=== PATIENT | female | born 1935 | race Caucasian/White ===

== ENCOUNTER 2016-06-13 18:28 | Inpatient (IN) | payer OTHER, MEDICARE ==
[~2016-06-13] VITALS: Ht 162.6 cm; Wt 161.3 kg
[~2016-06-13 18:28] MED LIST: ADVAI250I PO; ASCO500 PO; B COTAB3 PO; BACL20TA PO; CO Q100C9 PO; DIFL150T PO; DUONI NEB; FLUN25I; GNP5TAB6 PO; HYDRO10 PO; INSU100V3 SC; LEVO.1 PO; LORA10 PO; MAGN500T4 PO; OXYC10TA8 PO; POLY119S PO; ROPI.5 PO; SILV400T TOP; TAB-TAB PO; WARF7.5T4 PO; [UNRECOGNIZED DRUG - CODE] PO; [UNRECOGNIZED DRUG - OTHER] PO
--- NOTE | 2016-06-13 18:44 | PD ---
HPI Chief Complaint: pain Time Seen by Provider: 18:39 Travel History International Travel<30 days: No Contact w/Intl Traveler<30days: No History of Present Illness HPI Patient was in complaining of worsening overall body ain. Patient states she slipped off of her bed falling between her bed and her wheelchair for approximately 2-3 hours. Patient having pain in her right lower extremity since primarily over the right knee is achy like in nature. Patient denies hitting her head or loss of consciousness. Patient states she continues to have pain all over. Denies anything making it better. Pain is worse certain movement. Denies any known fevers, shortness of breath, chest pain, nausea, vomiting, numbness or tingling anywhere that is new. Patient states she is usually able to get up and pivot from her chair to her bed using her left leg since her fall yesterday she has not been able to do this secondary to having pain all over. Patient states she contacted her primary care doctor about wanting to get into an assisted-living facility and was told she would have to come back to the hospital to be admitted in order to be placed into a nursing facility. Patient states she is unable to take care of herself and this is a reason she wants to go to an [facility]. Patient denies any new trauma since her fall yesterday. PFSH Past Medical History Hx Anticoagulant Therapy: Yes Arthritis: Yes Asthma: Yes Autoimmune Disease: No Heart Rhythm Problems: No Cancer: No Cardiovascular Problems: Yes ([place]) High Cholesterol: Yes Chemotherapy: No Chest Pain: No Congestive Heart Failure: No COPD: No Cerebrovascular Accident: Yes Diabetes: Yes Deep Vein Thrombosis: Yes Endocrine: Yes GERD: No Genitourinary: No Hiatal Hernia: No Hypertension: Yes Immune Disorder: No Implanted Vascular Access Dvce: Yes Kidney Stones: No Musculoskeletal: Yes (RIGHT FEMUR FRACTURE) Neurologic: Yes (restless leg syndrome) Psychiatric: No Reproductive: No Respiratory: Yes (ALLERGY INDUCED ASTHMA) Migraines: No Myocardial Infarction: Yes Radiation Therapy: No Renal Failure: No Seizures: No Sickle Cell Disease: No Thyroid Disease: No Ulcer: No Past Surgical History Appendectomy: Yes Cardiac Surgery: No Ear Surgery: No Endocrine Surgery: No Eye Surgery: Yes (cataract removal) Genitourinary Surgery: No Gynecologic Surgery: Yes (hysterectomy) Hysterectomy: Yes Insulin Pump: Yes Oral Surgery: No Thoracic Surgery: No Other Surgery: Yes (RT LEG KNEE 08/23/10) Social History Alcohol Use: No Tobacco Use: No Substance Use: No Allergies-Medications (Allergen,Severity, Reaction): Coded Allergies: Benzodiazepines (Verified Allergy, Severe, Anaphylaxis, 11/23/15) Cipro (Verified Allergy, Severe, Diarrhea, 11/23/15) Fentanyl (Verified Allergy, Severe, difficulty breathing, 11/23/15) Lorazepam (Verified Allergy, Severe, Anaphylaxis, 11/23/15) Macrobid (Verified Allergy, Severe, 11/23/15) Quinine (Verified Allergy, Severe, Anaphylaxis, 11/23/15) Symbicort (Verified Allergy, Severe, 11/23/15) burning in chest Ativan (Verified Adverse Reaction, Severe, anxious, 11/23/15) Uncoded Allergies: steroids (Adverse Reaction, Severe, 11/23/15) depression Reported Meds & Prescriptions Reported Meds & Active Scripts Active Humulin N U-100 Pen (Insulin Human Nph) Inj 12 Units SC BID 30 Days Loratadine 10 Mg Tab 10 Mg PO DAILY Vitamin C 500 Mg Tab (Ascorbic Acid) 500 Mg Tab 1,000 Mg PO BID Multivitamin (Multivitamins) 1 Tab Tab 1 Tab PO DAILY Reported Stay Awake (Caffeine) 200 Mg Tab 1 Tab PO DAILY Cortef (Hydrocortisone) 10 Mg Tab Unknown Dose PO DIRECTED Flunisolide 0.025 % Spr 2 [place] NA TID PRN EACH NOSTRIL Gnp Melatonin Maximum Str (Melatonin) 5 Mg Tab 5 Mg PO HS Magnesium 500 Mg Tab 500 Mg PO DAILY Co Q 10 (Coenzyme Q10) 100 Mg Cap 100 Mg PO DAILY B Complex (Vitamin B Complex) Tab 1 Tab PO DAILY Resp: Albuterol/Ipratropium 2.5 Mg/0.5 Mg (Albuterol/Ipratropium) 1 Amp Nebu 1 Ampule NEB QID NEB PRN Silvadene 400 Gm (Silver Sulfadiazine) 400 Applic/400 Gm Cr 1 Applic TOP DAILY Diflucan 150 mg (Fluconazole) 150 Mg Tab 150 Mg PO EVERY 3 WEEKS Lioresal 20 Mg Tab (Baclofen) 20 Mg Tab 20 Mg PO TID Miralax 119 Gm Bottle (Polyethylene Glycol) 119 Gm Powd 17 Gm PO BID PRN 17 GRAMS = 1 TABLESPOON DISSOLVED IN 4 TO 8 OUNCES OF BEVERAGE Advair Diskus 250/50 (Salmeterol Xinafoate/Fluticasone) Fluticasone/Salmeterol 250/50 Inh 1 Puff PO BID Synthroid 100 mcg (Levothyroxine Sodium) 100 Mcg Tab 100 Mcg PO DAILY Oxycodone (Oxycodone HCl) 10 Mg Tab 10 Mg PO Q6H PRN Kp Lutein (Lutein) 6 Mg Cap 6 Mg PO DAILY Warfarin Sodium 7.5 mg (Warfarin Sodium) 7.5 Mg Tab 7.5 Mg PO HS Requip (Ropinirole HCl) 0.5 Mg Tab 0.5 Mg PO TID Review of Systems Except as stated in HPI: all other systems reviewed are Neg Physical Exam Narrative GENERAL: Well-developed, overly nourished, in no acute distress, and non-ill appearing. SKIN: Warm and dry. Contusion noted right anterior knee medial aspect. HEAD: Atraumatic. Normocephalic. EYES: Pupils equal and round. EOMI. No scleral icterus. No injection or drainage. ENT: No nasal bleeding or discharge. Mucous membranes pink and moist. NECK: Trachea midline. Supple. No nuclear rigidity. CARDIOVASCULAR: Regular rate and rhythm. No murmur appreciated. Dorsal pulses 2+ intact bilaterally. Capillary refill less than 2 seconds. No pedal edema. RESPIRATORY: No accessory muscle use. No respiratory distress. Clear to auscultation. Breath sounds equal bilaterally. GASTROINTESTINAL: Abdomen soft, non-tender, nondistended. Hepatic and splenic margins not palpable. Normal bowel sounds 4. No pulsatile mass. MUSCULOSKELETAL: No obvious deformities. No clubbing. No cyanosis. No edema. Decreased range of motion right lower extremity. Patient reports is chronic secondary to pain. Sensation intact over first web spacing bilateral lower extremities. NEUROLOGICAL: Awake and alert. No obvious cranial nerve deficits. Motor grossly within normal limits. Normal speech. PSYCHIATRIC: Appropriate mood and affect; insight and judgment normal. Data Data Last Documented VS Vital Signs Date Time Temp Pulse Resp B/P Pulse Ox O2 Delivery O2 Flow Rate FiO2 06/13/16 18:46 99.4 98 28 147/79 94 06/13/16 18:46 Room Air Orders Electrocardiogram (06/13/16 18:34) Basic Metabolic Panel (Bmp) (06/13/16 18:34) Complete Blood Count With Diff (06/13/16 18:34) Chest, Single Ap (06/13/16 18:34) Ecg Monitoring (06/13/16 18:34) Iv Access Insert/Monitor (06/13/16 18:34) Oximetry (06/13/16 18:34) Oxygen Administration (06/13/16 18:34) Sodium Chloride 0.9% Flush (Ns Flush) (06/13/16 18:45) Creatine Kinase (Cpk) (06/13/16 18:34) Urinalysis - C+S If Indicated (06/13/16 18:37) Act Partial Throm Time (Ptt) (06/13/16 18:44) Prothrombin Time / Inr (Pt) (06/13/16 18:44) Knee, Ltd (1 Or 2vws) (06/13/16 ) CKMB (06/13/16 19:15) CKMB% (06/13/16 19:15) Sodium Chlor 0.9% 1000 Ml Inj (Ns 1000 M (06/13/16 20:45) Labs Laboratory Tests Test 06/13/16 19:15 White Blood Count 7.4 TH/MM3 Red Blood Count 4.59 MIL/MM3 Hemoglobin 13.2 GM/DL Hematocrit 40.2 % Mean Corpuscular Volume 87.5 FL Mean Corpuscular Hemoglobin 28.7 PG Mean Corpuscular Hemoglobin 32.8 % Concent Red Cell Distribution Width 13.9 % Platelet Count 165 TH/MM3 Mean Platelet Volume 8.5 FL Neutrophils (%) (Auto) 67.1 % Lymphocytes (%) (Auto) 18.3 % Monocytes (%) (Auto) 12.9 % Eosinophils (%) (Auto) 1.2 % Basophils (%) (Auto) 0.5 % Neutrophils # (Auto) 5.0 TH/MM3 Lymphocytes # (Auto) 1.4 TH/MM3 Monocytes # (Auto) 1.0 TH/MM3 Eosinophils # (Auto) 0.1 TH/MM3 Basophils # (Auto) 0.0 TH/MM3 CBC Comment DIFF FINAL Differential Comment Prothrombin Time 11.4 SEC Prothromb Time International 1.0 RATIO Ratio Activated Partial 26.8 SEC Thromboplast Time Sodium Level 139 MEQ/L Potassium Level 3.7 MEQ/L Chloride Level 99 MEQ/L Carbon Dioxide Level 33.9 MEQ/L Anion Gap 6 MEQ/L Blood Urea Nitrogen 17 MG/DL Creatinine 1.03 MG/DL Estimat Glomerular Filtration 52 ML/MIN Rate Random Glucose 113 MG/DL Calcium Level 7.9 MG/DL Total Creatine Kinase 2762 U/L Creatine Kinase MB 7.6 NG/ML Creatine Kinase MB % 0.3 % MDM Medical Decision Making Medical Screen Exam Complete: Yes Emergency Medical Condition: Yes Differential Diagnosis Fracture, contusion, strain, pneumonia, rhabdomyolysis, electrolyte abnormality , UTI, other Narrative Course Patient was seen and examined Laboratory studies were obtained and reviewed with UA pending currently. Chest x-ray was obtained and reviewed. Discussed patient with Dr. Bryant, who saw and evaluated the patient and is in agreement with plan of care and disposition. Discussed all findings and plan of care with patient who is agreeable for admission. All questions were answered. Physician Communication Physician Communication [address] Chavez, is agreeable to admit the patient. Diagnosis Primary Impression: Traumatic rhabdomyolysis Qualified Code: T79.6XXA - Traumatic rhabdomyolysis, initial encounter Additional Impressions: Fall Qualified Code: W19.XXXD - Fall, subsequent encounter Right knee injury Qualified Code: S89.91XD - Right knee injury, subsequent encounter Admitting Information Admitting Physician Requests: Admit Condition: Stable Elliott Olguin Jun 13, 2016 18:44
[2016-06-13] MEDS ORDERED: SODIUM CHLORIDE 0.9% FLUSH 5 ML FLUSH IVF PRN (18:45)
[2016-06-13 18:46] VITALS: BP 147/79; PULSE 91; PULSE 98; RESP 28; TEMP 99.4; O2SAT 94
[2016-06-13 19:36] LABS: BASOPHIL % 0.5 % (0.0-2.0); EOSINOPHIL # 0.1 TH/MM3 (0-0.4); EOSINOPHIL % 1.2 % (0.0-4.0); HEMATOCRIT 40.2 % (35.0-46.0); HEMO FLAGS DIFF FINAL; LYMPH % 18.3 % (9.0-44.0); LYMPHOCYTE # 1.4 TH/MM3 (1.0-4.8); MEAN CELL VOLUME 87.5 FL (80.0-100.0); MEAN CORPUSCULAR HEMOGLOBIN 28.7 PG (27.0-34.0); MEAN CORPUSCULAR HGB CONC 32.8 % (32.0-36.0); MONO % 12.9 % (0.0-8.0); NEUT % 67.1 % (16.0-70.0); PLATELET COUNT 165 TH/MM3 (150-450); RED BLOOD COUNT 4.59 MIL/MM3 (4.00-5.30); RED CELL DISTRIBUTION WIDTH 13.9 % (11.6-17.2); WHITE BLOOD COUNT 7.4 TH/MM3 (4.0-11.0)
[2016-06-13 19:42] LABS: APTT (PATIENT) 26.8 SEC (24.3-30.1); PROTHROMBIN TIME - PATIENT 11.4 SEC (9.8-11.6)
[2016-06-13 19:54] LABS: BICARBONATE 33.9 MEQ/L (21.0-32.0); POTASSIUM 3.7 MEQ/L (3.5-5.1)
[2016-06-13 20:00] VITALS: BP 146/76; PULSE 88; RESP 20; TEMP 98; O2SAT 98
--- NOTE | 2016-06-13 20:11 | RADRPT ---
EXAM DATE/TIME: 06/13/2016 18:38 [facility] COMPARISON: CHEST PA & LAT, July 28, 2014, 15:22. INDICATIONS : Short of breath, fell MEDICAL HISTORY : Hypertension. Diabetes mellitus type II. SURGICAL HISTORY : Bilateral knee replacements ENCOUNTER: Initial ACUITY: 2 days PAIN SCORE: 0/10 LOCATION: Bilateral chest FINDINGS: A single view of the chest demonstrates basilar dependent atelectasis. Heart size upper limits normal . Mediastinum widened probably mostly from film rotation. CONCLUSION: 1. Minimal basilar and dependent atelectasis. No pneumothorax or effusion. Rajat Mccormick MD on June 13, 2016 at 20:08 Board Certified Radiologist. This report was verified electronically.
--- NOTE | 2016-06-13 20:15 | RADRPT ---
EXAM DATE/TIME: 06/13/2016 18:44 [facility] COMPARISON: No previous studies available for comparison. INDICATIONS : Right knee pain, fell MEDICAL HISTORY : Hypertension. Diabetes mellitus type II. SURGICAL HISTORY : Bilateral knee replacements ENCOUNTER: Initial ACUITY: 2 days PAIN SCORE: 10/10 LOCATION: Right Knee FINDINGS: Exam reveals previous total knee replacement with cerclage wire fixation of the distal femur. A fract ure line remains visible in the distal femoral shaft within the circumference of the cerclage wires. It is unclear if this is an acute or chronic injury. There is no prior study for comparison. There do es appear to be a large joint effusion. The bones are very osteopenic CONCLUSION: 1. Previous knee replacement with cerclage wire fixation of the distal femur. Fracture line remains v isible in the distal femoral shaft although of uncertain age. There is a large joint effusion with so ft tissue swelling anteriorly. Rajat Mccormick MD on June 13, 2016 at 20:10 Board Certified Radiologist. This report was verified electronically.
[2016-06-13] MEDS ORDERED: SODIUM CHLOR 0.9% 1000 ML INJ 1,000 ML IV ONE (20:45)
[2016-06-13 20:51] LABS: CKMB 7.6 NG/ML (0.5-3.6)
--- NOTE | 2016-06-13 21:08 | HHI.HP ---
HPI Service [facility] Primary Care Physician Alma Nogueira MD Admission Diagnosis rhabdomyolysis, fall, right knee contusion Diagnoses: (1) Fall Diagnosis: Principal (2) Physical deconditioning Diagnosis: Principal (3) Rhabdomyolysis Diagnosis: Principal (4) Knee pain Diagnosis: Principal (5) Chronic anticoagulation Diagnosis: Principal (6) Renal insufficiency Diagnosis: Principal (7) COPD (chronic obstructive pulmonary disease) Diagnosis: Principal (8) DM (diabetes mellitus) Diagnosis: Principal Travel History International Travel<30 Days: No Contact w/Intl Traveler <30 Da: No Traveled to Known Affected Are: No History of Present Illness This is a 80-year-old female with a PMH of HTN, CAD, h/o CVA, Chronic Anticoagulation w/ Coumadin, Restless Leg Syndrome, COPD, Hypothyroidism and Morbid Obesity who was brought to the ER by EMS for c/o right knee pain following fall yesterday. Pt had apparently fallen at home and had gotten wedged between her bed and her wheelchair while she was trying to transfer. States she was down for approx 3hrs before she was found. Denies LOC or head trauma. Seen at [facility] and was discharged home, however having persistent knee pain and unable to care for self as pt lives at home alone. On arrival, BP 146/76, HR 88, O2 sat 98% on 2L NC, Afebrile. CBC unremarkable. Creatinine 1.03, previously 1.08 on 11/23/15. CPK 2762. CXR with minimal basilar and dependent atelectasis. Knee X-ray with previous knee replacement and fracture line remaining visible with large joint effusion and soft tissue swelling anteriorly. Review of Systems Except as stated in HPI: all other systems reviewed are Neg ROS: 14 point review of systems otherwise negative. Past Family Social History Past Medical History PMH: HTN, CAD, h/o CVA, Chronic Anticoagulation w/ Coumadin, Restless Leg Syndrome, COPD, Hypothyroidism and Morbid Obesity Past Surgical History PAST SURGICAL HISTORY: Cataract Surgery, Hysterectomy, Right Knee Replacement, Insulin Pump Allergies: Coded Allergies: Benzodiazepines (Verified Allergy, Severe, Anaphylaxis, 11/23/15) Cipro (Verified Allergy, Severe, Diarrhea, 11/23/15) Fentanyl (Verified Allergy, Severe, difficulty breathing, 11/23/15) Lorazepam (Verified Allergy, Severe, Anaphylaxis, 11/23/15) Macrobid (Verified Allergy, Severe, 11/23/15) Quinine (Verified Allergy, Severe, Anaphylaxis, 11/23/15) Symbicort (Verified Allergy, Severe, 11/23/15) burning in chest Ativan (Verified Adverse Reaction, Severe, anxious, 11/23/15) Uncoded Allergies: steroids (Adverse Reaction, Severe, 11/23/15) depression Family History PAST FAMILY HISTORY: Reviewed, positive for DM Social History PAST SOCIAL HISTORY: Negative for alcohol, tobacco or drugs. Physical Exam Vital Signs Vital Signs Date Time Temp Pulse Resp B/P Pulse Ox O2 Delivery O2 Flow Rate FiO2 06/13/16 18:46 99.4 98 28 147/79 94 06/13/16 18:46 99.4 91 28 147/79 94 Room Air Physical Exam PE: GENERAL: Morbidly obese elderly female in no acute distress. HEENT: PERRLA, EOMI. No scleral icterus or conjunctival pallor. No lid lag or facial droop. CARDIOVASCULAR: Regular rate and rhythm. No obvious murmurs to auscultation. No chest tenderness to palpation. RESPIRATORY: No obvious rhonchi or wheezing. Clear to auscultation. Breath sounds equal bilaterally. GASTROINTESTINAL: Abdomen soft, non-tender, nondistended. BS normal. MUSCULOSKELETAL: Decreased ROM of right knee due to pain, +bruising to right knee, Pulses intact. NEUROLOGICAL: Awake, alert and oriented x4. No focal neurologic deficits. Moving both upper and lower extremities spontaneously. Laboratory Laboratory Tests Test 06/13/16 19:15 White Blood Count 7.4 Red Blood Count 4.59 Hemoglobin 13.2 Hematocrit 40.2 Mean Corpuscular Volume 87.5 Mean Corpuscular Hemoglobin 28.7 Mean Corpuscular Hemoglobin 32.8 Concent Red Cell Distribution Width 13.9 Platelet Count 165 Mean Platelet Volume 8.5 Neutrophils (%) (Auto) 67.1 Lymphocytes (%) (Auto) 18.3 Monocytes (%) (Auto) 12.9 Eosinophils (%) (Auto) 1.2 Basophils (%) (Auto) 0.5 Neutrophils # (Auto) 5.0 Lymphocytes # (Auto) 1.4 Monocytes # (Auto) 1.0 Eosinophils # (Auto) 0.1 Basophils # (Auto) 0.0 CBC Comment DIFF FINAL Differential Comment Prothrombin Time 11.4 Prothromb Time International 1.0 Ratio Activated Partial 26.8 Thromboplast Time Sodium Level 139 Potassium Level 3.7 Chloride Level 99 Carbon Dioxide Level 33.9 Anion Gap 6 Blood Urea Nitrogen 17 Creatinine 1.03 Estimat Glomerular Filtration 52 Rate Random Glucose 113 Calcium Level 7.9 Total Creatine Kinase 2762 Creatine Kinase MB 7.6 Creatine Kinase MB % 0.3 Result Diagram: 06/13/16191406/13/161914 Assessment and Plan Problem List: (1) Fall ICD Code: W19.XXXA Status: Acute (2) Rhabdomyolysis ICD Code: M62.82 Status: Acute (3) Physical deconditioning ICD Code: R53.81 Status: Acute (4) Knee pain ICD Code: M25.569 Status: Acute (5) Chronic anticoagulation ICD Code: Z79.01 Status: Acute (6) Renal insufficiency ICD Code: N28.9 Status: Acute (7) COPD (chronic obstructive pulmonary disease) ICD Code: J44.9 Status: Acute (8) DM (diabetes mellitus) ICD Code: E11.9 Status: Acute Assessment and Plan A/P: 1. Fall: S/p fall while attempting to transfer from bed to wheelchair, no LOC or head trauma. 2. Physical Deconditioning: Compounded by Morbid Obesity, will consult PT for eval/tx. 3. Right Knee Pain: secondary to fall. Knee X-ray w/ previous knee replacement, fracture line remains visible in distal femoral shaft of uncertain age, large joint effusion with soft tissue swelling anteriorly, images reviewed by me. Analgesics as needed. PT for eval/tx as above. 4. Rhabdomyolysis: CPK 2762, secondary to prolonged down time. U/a pending. IVF, repeat CPK for trend. 5. Chronic Anticoagulation: On Coumadin, unclear for what reason, presumably for h/o CVA. INR 1.0. Will resume, recheck INR. 6. Renal Insufficiency: Creatinine 1.03, previously 1.08 on 11/23/15. Pending U/a, IVF, will repeat labs in am. 7. COPD: Chronic Respiratory Failure. Stable. Resume home Advair. 8. DM: Sliding scale w/ Accu-Checks. 9. DVT Prophylaxis: On Coumadin 10. Social work for d/c planning as needed. 11. Case discussed w/ ER physician at length. Physician Certification 2 Midnight Certification Type: Admission for Inpatient Services Order for Inpatient Services The services are ordered in accordance with Medicare regulations or non- Medicare payer requirements, as applicable. In the case of services not specified as inpatient-only, they are appropriately provided as inpatient services in accordance with the 2-midnight benchmark. Estimated LOS (days): 2 days is the estimated time the patient will need to remain in the hospital, assuming treatment plan goals are met and no additional complications. Post-Hospital Plan: Not yet determined Problem Qualifiers (1) Fall: Qualified Code: W19.XXXD - Fall, subsequent encounter Arlene Chavez MD Jun 13, 2016 21:08
[2016-06-13] MEDS ORDERED: BISACODYL 10 MG SUPP PR PRN (21:15)
[2016-06-13] MEDS ORDERED: DEXTROSE 50% IN WATER 50 ML VIAL(D50) IV PUSH PRN (21:15)
[2016-06-13] MEDS ORDERED: GLUCAGON 1 MG/ML VIAL OTHER PRN (21:15)
[2016-06-13] MEDS ORDERED: SODIUM CHLORIDE 0.9% FLUSH 5 ML FLUSH FLUSH PRN (21:15)
[2016-06-13] MEDS ORDERED: ONDANSETRON HCL 4 MG/2 ML VIAL IVP PRN (21:15)
[2016-06-13] MEDS ORDERED: ACETAMINOPHEN 325 MG TAB PO PRN (21:15)
[2016-06-13] MEDS: RESP: ALBUTEROL 2.5 MG/IPRATROPIUM 0.5 MG NEB (PRN) NEB (21:28)
[2016-06-13 21:29] VITALS: O2SAT 95
[2016-06-13 22:00] VITALS: BP 148/72; PULSE 92; RESP 20; O2SAT 98
[2016-06-13 23:13] VITALS: RESP 20
[2016-06-13] MEDS: MORPHINE SULFATE 4 MG/ML INJ IV PRN (23:16)
[2016-06-13] MEDS ORDERED: ADVA250A INH (23:26)
[2016-06-13] MEDS ORDERED: GABA600T PO (23:26)
[2016-06-13] MEDS ORDERED: ROPI.5 PO (23:26)
[2016-06-13] MEDS ORDERED: WARF-21 PO (23:26)
[2016-06-13] MEDS ORDERED: LEVO.1 PO (23:26)
[2016-06-13] MEDS: SODIUM CHLOR 0.9% 1000 ML INJ 1,000 ML IV SCH (23:33)
[2016-06-14] VITALS (10 sets, daily range): BP systolic 101–130; BP diastolic 59–74; PULSE 77–84; RESP 20–22; TEMP 98–99.7; O2SAT 91–96
[2016-06-14 00:33] LABS: BLOOD, URINE NEG (NEG); COMMENT (UR) CULT NOT INDICATED; CULTURE IF INDICATED CULT NOT INDICATED; GLUCOSE,URINE NEG (NEG); HYALINE CAST, URINE 1 /lpf (RARE); KETONE, URINE TRACE mg/dL (NEG); MUCUS URINE FEW /lpf (OCC); NITRITE,URINE NEG (NEG); SQUAMOUS EPITHELIAL CELL URINE 1 /hpf (0-5); URINE COLOR YELLOW (YELLW/STRAW); WAXY CAST, URINE 1 /lpf
[2016-06-14] MEDS ORDERED: INFO FOR PHARMACY/READ COMMENT XX ONE (01:00)
[2016-06-14 03:11] LABS: AUTOMATED NEUTROPHIL # 5.3 TH/MM3 (1.8-7.7); BASOPHIL # 0.1 TH/MM3 (0-0.2); BASOPHIL % 0.6 % (0.0-2.0); EOSINOPHIL # 0.1 TH/MM3 (0-0.4); EOSINOPHIL % 1.5 % (0.0-4.0); HEMATOCRIT 37.8 % (35.0-46.0); HEMO FLAGS DIFF FINAL; LYMPH % 21.8 % (9.0-44.0); LYMPHOCYTE # 1.8 TH/MM3 (1.0-4.8); MEAN CELL VOLUME 86.9 FL (80.0-100.0); MEAN CORPUSCULAR HEMOGLOBIN 29.4 PG (27.0-34.0); MEAN CORPUSCULAR HGB CONC 33.8 % (32.0-36.0); MONO % 12.3 % (0.0-8.0); NEUT % 63.8 % (16.0-70.0); PLATELET COUNT 170 TH/MM3 (150-450); RED BLOOD COUNT 4.35 MIL/MM3 (4.00-5.30); RED CELL DISTRIBUTION WIDTH 13.4 % (11.6-17.2); WHITE BLOOD COUNT 8.3 TH/MM3 (4.0-11.0)
[2016-06-14 03:20] LABS: INTERNATIONAL NORMALIZED RATIO 1.1 RATIO; PROTHROMBIN TIME - PATIENT 11.7 SEC (9.8-11.6)
[2016-06-14 03:41] LABS: ANION GAP 6 MEQ/L (5-15); AST (GOT) 72 U/L (15-37); BICARBONATE 30.8 MEQ/L (21.0-32.0); BLOOD UREA NITROGEN 17 MG/DL (7-18); CHLORIDE 102 MEQ/L (98-107); GLOMERULAR FILTRATION RATE 60 ML/MIN (>89); POTASSIUM 3.9 MEQ/L (3.5-5.1); SODIUM (NA) 139 MEQ/L (136-145)
[2016-06-14 03:55] LABS: ALKALINE PHOSPHATASE 85 U/L (45-117); ALT (GPT) 35 U/L (10-53); CREATINE KINASE 2262 U/L (26-192); TOTAL BILIRUBIN ADULT 0.8 MG/DL (0.2-1.0)
[2016-06-14 04:11] LABS: CKMB 4.6 NG/ML (0.5-3.6)
[2016-06-14] MEDS: LEVOTHYROXINE SODIUM 100 MCG TAB PO SCH (06:18)
[2016-06-14] MEDS: SODIUM CHLOR 0.9% 1000 ML INJ 1,000 ML IV SCH ×2 (06:22→17:26)
[2016-06-14] MEDS ORDERED: INSULIN ASPART SUPPLEMENTAL SCALE SQ SCH (07:00)
[2016-06-14] MEDS: GABAPENTIN 300 MG CAP PO SCH ×2 (08:21→21:20)
[2016-06-14] MEDS ORDERED: SALMETEROL INH SCH (09:00)
[2016-06-14] MEDS: SODIUM CHLORIDE 0.9% FLUSH 5 ML FLUSH FLUSH SCH ×2 (09:00→21:00)
[2016-06-14] MEDS ORDERED: FLUTICASONE INH SCH (09:00)
[2016-06-14] MEDS: INSULIN ASPART SUPPLEMENTAL SCALE SQ SCH ×3 (11:00→21:00)
[2016-06-14 11:21] LABS: CKMB 4.6 NG/ML (0.5-3.6)
--- NOTE | 2016-06-14 11:30 | HHI.PR ---
Subjective Remarks Follow-up right knee pain. Unable to bear weight with decreased range of motion. She thinks she takes Coumadin secondary to history of CVA but was told to hold it secondary to upcoming skin surgery. Objective Vitals Vital Signs Date Time Temp Pulse Resp B/P Pulse Ox O2 Delivery O2 Flow Rate FiO2 06/14/16 08:58 98.4 83 22 119/59 93 06/14/16 08:50 94 Nasal Cannula 3.00 06/14/16 02:33 98.2 78 20 108/59 91 06/13/16 23:30 20 06/13/16 23:13 20 06/13/16 23:11 Nasal Cannula 06/13/16 22:00 92 20 148/72 98 Nasal Cannula 2 06/13/16 21:29 95 Nasal Cannula 3.00 06/13/16 20:00 98.0 88 20 146/76 98 Nasal Cannula 2 06/13/16 18:46 99.4 98 28 147/79 94 06/13/16 18:46 99.4 91 28 147/79 94 Room Air I/O 06/13/16 06/13/16 06/13/16 06/14/16 06/14/16 06/14/16 07:00 15:00 23:00 07:00 15:00 23:00 Intake Total 120 ml Balance 120 ml Intake Oral 120 ml IV Total 0 ml Result Diagram: 06/14/16 0254 06/14/16 0254 Imaging Last Impressions Chest X-Ray 06/13/16 1834 Signed Impressions: Service Date/Time: June 18:38 - CONCLUSION: 1. Minimal basilar and dependent atelectasis. No pneumothorax or effusion. Rajat Mccormick MD Knee X-Ray 06/13/16 0000 Signed Impressions: Service Date/Time: June 18:44 - CONCLUSION: 1. Previous knee replacement with cerclage wire fixation of the distal femur. Fracture line remains visible in the distal femoral shaft although of uncertain age. There is a large joint effusion with soft tissue swelling anteriorly. Rajat Mccormick MD Objective Remarks GENERAL: Morbidly obese elderly female in no acute distress. HEENT: PERRLA, EOMI. No scleral icterus or conjunctival pallor. No lid lag or facial droop. CARDIOVASCULAR: Regular rate and rhythm. No obvious murmurs to auscultation. No chest tenderness to palpation. RESPIRATORY: No obvious rhonchi or wheezing. Clear to auscultation. Breath sounds equal bilaterally. GASTROINTESTINAL: Abdomen soft, non-tender, nondistended. BS normal. MUSCULOSKELETAL: Decreased ROM of right knee due to pain, +bruising to right knee, Pulses intact. NEUROLOGICAL: Awake, alert and oriented x4. No focal neurologic deficits. Moving both upper and lower extremities spontaneously. A/P Problem List: (1) Fall ICD Code: W19.XXXA Status: Acute (2) Rhabdomyolysis ICD Code: M62.82 Status: Acute (3) Physical deconditioning ICD Code: R53.81 Status: Acute (4) Knee pain ICD Code: M25.569 Status: Acute (5) Chronic anticoagulation ICD Code: Z79.01 Status: Acute (6) Renal insufficiency ICD Code: N28.9 Status: Acute (7) COPD (chronic obstructive pulmonary disease) ICD Code: J44.9 Status: Acute (8) DM (diabetes mellitus) ICD Code: E11.9 Status: Acute Assessment and Plan 1. Fall: S/p fall while attempting to transfer from bed to wheelchair, no LOC or head trauma. 2. Physical Deconditioning: Compounded by Morbid Obesity, will consult PT for eval/tx. 3. Right Knee Pain: secondary to fall. Knee X-ray w/ previous knee replacement, fracture line remains visible in distal femoral shaft of uncertain age, large joint effusion with soft tissue swelling anteriorly, images reviewed by me. Analgesics as needed. PT for eval/tx as above. Obtain CT and consult orthopedic surgery 4. Rhabdomyolysis: CPK 2762, secondary to prolonged down time. U/a unremarkable. IVF, repeat CPK down trending. 5. Chronic Anticoagulation: On Coumadin, unclear for what reason, presumably for h/o CVA. INR 1.0. Will hold for now pending orthopedic evaluation 6. Chronic kidney disease stage II: Creatinine 1.03, previously 1.08 on . Continue, IVF, will repeat labs in am. 7. COPD: Chronic Respiratory Failure. Stable. Resume home Advair. 8. DM: Sliding scale w/ Accu-Checks. Continue insulin pump 9. DVT Prophylaxis: SCD. Hold Coumadin Problem Qualifiers (1) Fall: Qualified Code: W19.XXXD - Fall, subsequent encounter Lamberto Gonzalez MD Jun 14, 2016 11:30 Lamberto Gonzalez MD Jun 14, 2016 11:30
[2016-06-14] MEDS ORDERED: WARFARIN SOD 7.5 MG TAB PO SCH ×3 (16:00→21:00)
[2016-06-14] MEDS: ACETAMINOPHEN/HYDROcodone 325 MG/5 MG TAB PO PRN (17:24)
--- NOTE | 2016-06-14 18:49 | PD.CONS ---
cc: Juan Guevara MD HPI Service Orthopedic Surgeons Consult Requested By Dr. Gonzalez Reason for Consult Right knee possible fracture Primary Care Physician Alma Nogueira MD Admission Diagnosis rhabdomyolysis, fall, right knee contusion Diagnoses: (1) Fall (2) Rhabdomyolysis (3) Physical deconditioning (4) Knee pain (5) Chronic anticoagulation (6) Renal insufficiency (7) COPD (chronic obstructive pulmonary disease) (8) DM (diabetes mellitus) (9) Michelle-prosthetic supracondylar fracture of femur Chief Complaint: Right leg pain History of Present Illness History of Present Illness This is a 80-year-old female with a PMH of HTN, CAD, h/o CVA, Chronic Anticoagulation w/ Coumadin, Restless Leg Syndrome, COPD, Hypothyroidism and Morbid Obesity who was brought to the ER by EMS for c/o right knee pain following fall yesterday. Pt had apparently fallen at home and had gotten wedged between her bed and her wheelchair while she was trying to transfer. States she was down for approx 3hrs before she was found. Denies LOC or head trauma. Seen at [facility] and was discharged home, however having persistent knee pain and unable to care for self as pt lives at home alone. On arrival, BP 146/76, HR 88, O2 sat 98% on 2L NC, Afebrile. CBC unremarkable. Creatinine 1.03, previously 1.08 on 11/23/15. CPK 2762. CXR with minimal basilar and dependent atelectasis. Knee X-ray with previous knee replacement and fracture line remaining visible with large joint effusion and soft tissue swelling anteriorly. 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 The patient states that she had a good result from the surgery although did have pain in the right lower extremity. 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 She normally transfers with weightbearing on the left lower extremity. Review of Systems Reviewed and well outlined in the medical record Past Family Social History Past Medical History PMH: HTN, CAD, h/o CVA, Chronic Anticoagulation w/ Coumadin, Restless Leg Syndrome, COPD, Hypothyroidism and Morbid Obesity Past Surgical History PAST SURGICAL HISTORY: Cataract Surgery, Hysterectomy, Right Knee Replacement, revision total knee arthroplasty with internal of nonunion ,Insulin Pump Allergies: Coded Allergies: Benzodiazepines (Verified Allergy, Severe, Anaphylaxis, 11/23/15) Cipro (Verified Allergy, Severe, Diarrhea, 11/23/15) Fentanyl (Verified Allergy, Severe, difficulty breathing, 11/23/15) Lorazepam (Verified Allergy, Severe, Anaphylaxis, 11/23/15) Macrobid (Verified Allergy, Severe, 11/23/15) Quinine (Verified Allergy, Severe, Anaphylaxis, 11/23/15) Symbicort (Verified Allergy, Severe, 11/23/15) burning in chest Ativan (Verified Adverse Reaction, Severe, anxious, 11/23/15) Uncoded Allergies: steroids (Adverse Reaction, Severe, 11/23/15) depression Active Ordered Medications Current Medications Medications (Trade) Dose Ordered Sig/Joy Route Start Time Stop Time Status Last Admin (D50w (Vial) Inj) 25 ml UNSCH PRN IV PUSH 06/13/16 21:15 Glucagon 1 mg 1 mg UNSCH PRN OTHER 06/13/16 21:15 (NS 1000 ml Inj) 1,000 ml @ 100 mls/hr Q10H IV 06/13/16 21:02 06/14/16 17:26 (NS Flush) 2 ml UNSCH PRN FLUSH 06/13/16 21:15 (NS Flush) 2 ml BID FLUSH 06/14/16 09:00 06/14/16 09:00 (Zofran Inj) 4 mg Q6H PRN IVP 06/13/16 21:15 06/13/16 23:16 (Dulcolax Supp) 10 mg DAILY PRN TN 06/13/16 21:15 (Tylenol) 650 mg Q6H PRN PO 06/13/16 21:15 ([place] 5-325 Mg) 1 tab Q4H PRN PO 06/13/16 21:15 06/14/16 17:24 (Morphine Inj) 2 mg Q3H PRN IV 06/13/16 21:15 06/13/16 23:16 (Requip) 0.5 mg TID PO 06/14/16 09:00 06/14/16 14:44 (Neurontin) 600 mg BID PO 06/14/16 09:00 06/14/16 08:21 (Synthroid) 100 mcg DAILY@0600 PO 06/14/16 06:00 06/14/16 06:18 (Requip) 0.5 mg HS PO 06/14/16 21:00 Patient Own Medication PT OWN MED:[ ADVAIR ... BID INH 06/14/16 09:00 Hold Warfarin Sodium 7.5 mg 7.5 mg DAILY@16 PO 06/14/16 16:00 Hold (Coumadin Consult Pharmacy) 0 ml @ 0 mls/hr UNSCH OTHER 06/14/16 10:45 Hold Reported Meds & Active Scripts Active Reported Requip (Ropinirole HCl) 0.5 Mg Tab 0.5 Mg PO HS Synthroid (Levothyroxine Sodium) 100 Mcg Tab 100 Mcg PO DAILY Warfarin 7.5 Mg Tab 7.5 Mg PO DAILY Gabapentin 600 Mg Tab 600 Mg PO BID Advair Diskus Inh (Fluticasone-Salmeterol Inh) 250-50 Mcg/Blist Aer 1 Puff INH BID Rinse mouth after use. Family History PAST FAMILY HISTORY: Reviewed, positive for DM Social History PAST SOCIAL HISTORY: Negative for alcohol, tobacco or drugs. Physical Exam Vital Signs Vital Signs Date Time Temp Pulse Resp B/P Pulse Ox O2 Delivery O2 Flow Rate FiO2 06/14/16 16:47 98.0 83 22 101/61 93 06/14/16 13:09 98.5 84 22 130/73 93 06/14/16 12:18 78 06/14/16 11:58 78 06/14/16 08:58 98.4 83 22 119/59 93 06/14/16 08:50 94 Nasal Cannula 3.00 06/14/16 02:33 98.2 78 20 108/59 91 06/13/16 23:30 20 06/13/16 23:13 20 06/13/16 23:11 Nasal Cannula 06/13/16 22:00 92 20 148/72 98 Nasal Cannula 2 06/13/16 21:29 95 Nasal Cannula 3.00 06/13/16 20:00 98.0 88 20 146/76 98 Nasal Cannula 2 06/13/16 18:46 99.4 98 28 147/79 94 06/13/16 18:46 99.4 91 28 147/79 94 Room Air Physical Exam Her examination is limited secondary to her size and pain and immobility. She currently is laying on the affected side. She has a well-healed surgical incision over the knee region. There is moderate swelling. There is no increased warmth or erythema. Her leg lengths appear equal. She is able to move her toes freely and has good capillary refill and sensation. Laboratory Laboratory Tests Test 06/13/16 06/14/16 06/14/16 06/14/16 19:15 00:10 02:54 08:36 White Blood Count 7.4 8.3 Red Blood Count 4.59 4.35 Hemoglobin 13.2 12.8 Hematocrit 40.2 37.8 Mean Corpuscular Volume 87.5 86.9 Mean Corpuscular Hemoglobin 28.7 29.4 Mean Corpuscular Hemoglobin 32.8 33.8 Concent Red Cell Distribution Width 13.9 13.4 Platelet Count 165 170 Mean Platelet Volume 8.5 8.6 Neutrophils (%) (Auto) 67.1 63.8 Lymphocytes (%) (Auto) 18.3 21.8 Monocytes (%) (Auto) 12.9 12.3 Eosinophils (%) (Auto) 1.2 1.5 Basophils (%) (Auto) 0.5 0.6 Neutrophils # (Auto) 5.0 5.3 Lymphocytes # (Auto) 1.4 1.8 Monocytes # (Auto) 1.0 1.0 Eosinophils # (Auto) 0.1 0.1 Basophils # (Auto) 0.0 0.1 CBC Comment DIFF FINAL DIFF FINAL Differential Comment Prothrombin Time 11.4 11.7 Prothromb Time International 1.0 1.1 Ratio Activated Partial 26.8 Thromboplast Time Sodium Level 139 139 Potassium Level 3.7 3.9 Chloride Level 99 102 Carbon Dioxide Level 33.9 30.8 Anion Gap 6 6 Blood Urea Nitrogen 17 17 Creatinine 1.03 0.91 Estimat Glomerular Filtration 52 60 Rate Random Glucose 113 91 Calcium Level 7.9 8.1 Total Creatine Kinase 2762 2262 2096 Creatine Kinase MB 7.6 4.6 4.6 Creatine Kinase MB % 0.3 0.2 0.2 Urine Color YELLOW Urine Turbidity CLEAR Urine pH 6.0 Urine Specific [place] 1.018 Urine Protein TRACE Urine Glucose (UA) NEG Urine Ketones TRACE Urine Occult Blood NEG Urine Nitrite NEG Urine Bilirubin NEG Urine Urobilinogen LESS THAN 2.0 Urine Leukocyte Esterase NEG Urine RBC LESS THAN 1 Urine WBC 1 Urine Squamous Epithelial 1 Cells Urine Hyaline Casts 1 Urine Waxy Casts 1 Urine Mucus FEW Microscopic Urinalysis Comment CULT NOT INDICATED Total Bilirubin 0.8 Aspartate Amino Transf 72 (AST/SGOT) Alanine Aminotransferase 35 (ALT/SGPT) Alkaline Phosphatase 85 Total Protein 5.7 Albumin 2.8 Result Diagram: 06/14/16 0254 06/14/16 0254 Imaging Last 48 hours Impressions Chest X-Ray 06/13/16 1834 Signed Impressions: Service Date/Time: June 18:38 - CONCLUSION: 1. Minimal basilar and dependent atelectasis. No pneumothorax or effusion. Rajat Mccormick MD Knee X-Ray 06/13/16 0000 Signed Impressions: Service Date/Time: June 18:44 - CONCLUSION: 1. Previous knee replacement with cerclage wire fixation of the distal femur. Fracture line remains visible in the distal femoral shaft although of uncertain age. There is a large joint effusion with soft tissue swelling anteriorly. Rajat Mccormick MD Assessment & Plan Problem List: (1) Michelle-prosthetic supracondylar fracture of femur (2) DM (diabetes mellitus) (3) Rhabdomyolysis (4) Renal insufficiency (5) COPD (chronic obstructive pulmonary disease) (6) Impaired mobility and activities of daily living (7) CVA (cerebral infarction) (8) Obesity (9) Diabetes Assessment and Plan The findings were discussed. There are no previous x-rays to compare the present time. Patient does have a probable acute supracondylar fracture of the right distal femur. Although mildly shortened it is minimally displaced. The patient is a nonambulator. In addition, she normally does not bear weight on this extremity for transfers. Given this and her multiple other medical issues recommendations are for nonoperative management. She may benefit from use of a knee immobilizer. When she can do so comfortably, she can transfer which she does with the contralateral lower extremity. The nature of the problem and the plan of treatment was discussed with her in detail and she is in agreement with same. Juan Guevara MD Jun 14, 2016 18:49
--- NOTE | 2016-06-14 18:59 | EKG ---
Date Performed: 06/13/2016 Time Performed: 22:07:35 PTAGE: 80 years EKG: Sinus rhythm RIGHT BUNDLE BRANCH BLOCK Left axis deviation. When compared to previous tracing, no significant ole nge. ABNORMAL ECG PREVIOUS TRACING : 11/23/2015 15.24 DOCTOR: Juan Williamson Interpretating Date/Time 06/14/2016 18:58:08
[2016-06-14] MEDS: MORPHINE SULFATE 4 MG/ML INJ IV PRN (21:21)
--- NOTE | 2016-06-14 23:16 | RADRPT ---
EXAM DATE/TIME: 06/14/2016 22:25 [facility] COMPARISON: KNEE RIGHT LTD (1 OR 2 VWS), June 13, 2016, 18:44. INDICATIONS : Abnormal knee x-ray; evaluate for fracture. RADIATION DOSE: 26.64 CTDIvol (mGy) MEDICAL HISTORY : Hypertension. Arthritis. SURGICAL HISTORY : Bilateral knee replacement. ENCOUNTER: Initial ACUITY: 2 days PAIN SCALE: 6/10 LOCATION: Right Knee TECHNIQUE: Volumetric scanning of the knee was performed. Using automated exposure control and adjustment of th e mA and/or kV according to patient size, radiation dose was kept as low as reasonably achievable to obtain optimal diagnostic quality images. FINDINGS: The patient has a right total knee arthroplasty with probably at least one revision of the femoral co mponent with multiple cerclage wires seen in the distal shaft region of the femur. There is an extrem ezra comminuted fracture of the distal metadiaphysis region of the right femur which appears acute or at least subacute in age. I don't see any substantial healing. There is anterior displacement and ang ulation deformity. Also mild lateral rotational malalignment. The arthroplasty itself is intact. The 4 cerclage wires are also intact. Proximal tibia intact. CONCLUSION: Comminuted acute or subacute appearing distal metadiaphyseal fracture of the right femur that involve s the femoral component of the right knee arthroplasty. Please see above. Micheal Brooks MD on June 14, 2016 at 23:09 Board Certified Radiologist. This report was verified electronically.
[2016-06-15] VITALS (8 sets, daily range): BP systolic 95–143; BP diastolic 62–76; PULSE 74–90; RESP 18–22; TEMP 96.8–98.6; O2SAT 92–98
[2016-06-15] MEDS: ACETAMINOPHEN/HYDROcodone 325 MG/5 MG TAB PO PRN ×2 (00:14→05:54)
[2016-06-15] MEDS: SODIUM CHLOR 0.9% 1000 ML INJ 1,000 ML IV SCH ×3 (03:02→23:02)
[2016-06-15] MEDS: MORPHINE SULFATE 4 MG/ML INJ IV PRN ×3 (03:31→14:43)
[2016-06-15] MEDS: LEVOTHYROXINE SODIUM 100 MCG TAB PO SCH (05:54)
[2016-06-15] MEDS: INSULIN ASPART SUPPLEMENTAL SCALE SQ SCH ×4 (06:33→21:00)
[2016-06-15 09:31] LABS: AUTOMATED NEUTROPHIL # 4.4 TH/MM3 (1.8-7.7); BASOPHIL % 0.4 % (0.0-2.0); EOSINOPHIL # 0.4 TH/MM3 (0-0.4); EOSINOPHIL % 6.1 % (0.0-4.0); HEMATOCRIT 37.4 % (35.0-46.0); HEMO FLAGS DIFF FINAL; LYMPH % 19.7 % (9.0-44.0); LYMPHOCYTE # 1.4 TH/MM3 (1.0-4.8); MEAN CELL VOLUME 87.9 FL (80.0-100.0); MEAN CORPUSCULAR HEMOGLOBIN 28.7 PG (27.0-34.0); MEAN CORPUSCULAR HGB CONC 32.7 % (32.0-36.0); MONO % 12.8 % (0.0-8.0); PLATELET COUNT 184 TH/MM3 (150-450); RED BLOOD COUNT 4.26 MIL/MM3 (4.00-5.30); RED CELL DISTRIBUTION WIDTH 13.5 % (11.6-17.2); WHITE BLOOD COUNT 7.1 TH/MM3 (4.0-11.0)
[2016-06-15 09:45] LABS: PROTHROMBIN TIME - PATIENT 11.4 SEC (9.8-11.6)
[2016-06-15 10:11] LABS: BICARBONATE 35.3 MEQ/L (21.0-32.0); MAGNESIUM 2.2 MG/DL (1.5-2.5); POTASSIUM 3.8 MEQ/L (3.5-5.1)
[2016-06-15] MEDS: GABAPENTIN 300 MG CAP PO SCH ×2 (10:23→21:56)
[2016-06-15] MEDS: SODIUM CHLORIDE 0.9% FLUSH 5 ML FLUSH FLUSH SCH ×2 (10:24→21:00)
[2016-06-15 10:35] LABS: CKMB 2.3 NG/ML (0.5-3.6)
[2016-06-15] MEDS: ENOXAPARIN SODIUM 40 MG/0.4 ML SYRINGE SQ SCH (11:00)
[2016-06-15] MEDS ORDERED: NALOXONE HCL 0.4 MG/ML AMP IV PRN (11:00)
--- NOTE | 2016-06-15 11:07 | HHI.PR ---
Subjective Remarks F/U ortho injury. States she still tries to walk before she fell. Dw ortho prior to CT results. Pt states she is off coumadin for skin sx 06/25 dw RN Objective Vitals Vital Signs Date Time Temp Pulse Resp B/P Pulse Ox O2 Delivery O2 Flow Rate FiO2 06/15/16 10:46 18 06/15/16 10:33 Nasal Cannula 2.00 06/15/16 08:00 97.8 74 20 121/71 96 06/15/16 03:50 98.3 90 20 99/62 95 06/15/16 00:01 98.6 78 20 125/76 95 06/14/16 20:10 99.7 80 20 127/74 96 06/14/16 20:00 77 06/14/16 19:31 94 Nasal Cannula 2.00 06/14/16 16:47 98.0 83 22 101/61 93 06/14/16 13:09 98.5 84 22 130/73 93 06/14/16 12:18 78 06/14/16 11:58 78 I/O 06/14/16 06/14/16 06/14/16 06/15/16 06/15/16 06/15/16 07:00 15:00 23:00 07:00 15:00 23:00 Intake Total 120 ml 240 ml 1330 ml Output Total 2 ml Balance 120 ml 238 ml 1330 ml Intake Oral 120 ml 240 ml 480 ml IV Total 0 ml 850 ml Output Stool Total 2 ml # Voids 4 3 2 # Bowel Movements 3 Result Diagram: 06/15/16 0826 06/15/16 0826 Imaging Last Impressions Lower Extremity CT 06/14/16 0000 Signed Impressions: Service Date/Time: Tuesday, June 14, 2016 22:25 - CONCLUSION: Comminuted acute or subacute appearing distal metadiaphyseal fracture of the right femur that involves the femoral component of the right knee arthroplasty. Please see above. Micheal Brooks MD Chest X-Ray 06/13/16 1834 Signed Impressions: Service Date/Time: June 18:38 - CONCLUSION: 1. Minimal basilar and dependent atelectasis. No pneumothorax or effusion. Rajat Mccormick MD Knee X-Ray 06/13/16 0000 Signed Impressions: Service Date/Time: June 18:44 - CONCLUSION: 1. Previous knee replacement with cerclage wire fixation of the distal femur. Fracture line remains visible in the distal femoral shaft although of uncertain age. There is a large joint effusion with soft tissue swelling anteriorly. Rajat Mccormick MD Objective Remarks GENERAL: Morbidly obese elderly female in no acute distress. HEENT: PERRLA, EOMI. No scleral icterus or conjunctival pallor. No lid lag or facial droop. CARDIOVASCULAR: Regular rate and rhythm. No obvious murmurs to auscultation. No chest tenderness to palpation. RESPIRATORY: No obvious rhonchi or wheezing. Clear to auscultation. Breath sounds equal bilaterally. GASTROINTESTINAL: Abdomen soft, non-tender, nondistended. BS normal. MUSCULOSKELETAL: Decreased ROM of right knee due to pain, +bruising to right knee, Pulses intact. NEUROLOGICAL: Awake, alert and oriented x4. No focal neurologic deficits. Moving both upper and lower extremities spontaneously. A/P Problem List: (1) Fall ICD Code: W19.XXXA Status: Acute (2) Rhabdomyolysis ICD Code: M62.82 Status: Acute (3) Physical deconditioning ICD Code: R53.81 Status: Acute (4) Knee pain ICD Code: M25.569 Status: Acute (5) Chronic anticoagulation ICD Code: Z79.01 Status: Chronic (6) Renal insufficiency ICD Code: N28.9 Status: Chronic (7) COPD (chronic obstructive pulmonary disease) ICD Code: J44.9 Status: Chronic (8) DM (diabetes mellitus) ICD Code: E11.9 Status: Chronic (9) Michelle-prosthetic supracondylar fracture of femur ICD Code: M97.8XXA Status: Acute Assessment and Plan 1. Fall: S/p fall while attempting to transfer from bed to wheelchair, no LOC or head trauma. 2. Physical Deconditioning: Compounded by Morbid Obesity, will cont PT 3. Right Knee Pain: secondary to fall. Knee X-ray w/ previous knee replacement, fracture line remains visible in distal femoral shaft of uncertain age, large joint effusion with soft tissue swelling anteriorly, images reviewed by me. Analgesics as needed. PT for eval/tx as above. CT with Comminuted acute or subacute appearing distal metadiaphyseal fracture of the right femur that involves the femoral component of the right knee arthroplasty, will alert orthopedic surgery. Pain mgt with lortab and IV MSO4 4. Rhabdomyolysis: CPK 2762, secondary to prolonged down time. U/a unremarkable. IVF, repeat CPK down trending. 5. Chronic Anticoagulation: On Coumadin, unclear for what reason, presumably for h/o CVA denies hx fib and DVT. INR 1.0. Will hold for now Pt states she is off coumadin for skin sx 06/25 dw RN 6. Chronic kidney disease stage II: Creatinine 1.03, previously 1.08 on . Improving 7. COPD: Chronic Respiratory Failure. Stable. Resume home Advair. 8. DM: Sliding scale w/ Accu-Checks. Continue insulin pump 9. DVT Prophylaxis: SCD. Start Lovenox Problem Qualifiers (1) Fall: Qualified Code: W19.XXXD - Fall, subsequent encounter Lamberto Gonzalez MD Jun 15, 2016 11:07
[2016-06-15] MEDS: ACETAMINOPHEN/HYDROcodone 325 MG/10 MG TAB PO PRN ×3 (12:25→21:57)
[2016-06-15] MEDS: RESP: ALBUTEROL 2.5 MG/IPRATROPIUM 0.5 MG NEB (PRN) NEB (20:37)
[2016-06-16] VITALS (7 sets, daily range): BP systolic 116–151; BP diastolic 58–86; PULSE 72–100; RESP 16–20; TEMP 97.7–99.1; O2SAT 90–96
[2016-06-16] MEDS: ACETAMINOPHEN/HYDROcodone 325 MG/7.5 MG TAB PO PRN ×2 (00:59→07:53)
[2016-06-16] MEDS: LEVOTHYROXINE SODIUM 100 MCG TAB PO SCH (05:28)
[2016-06-16] MEDS: INSULIN ASPART SUPPLEMENTAL SCALE SQ SCH ×4 (05:28→20:58)
[2016-06-16] MEDS: GABAPENTIN 300 MG CAP PO SCH ×2 (07:53→21:03)
[2016-06-16] MEDS: SODIUM CHLORIDE 0.9% FLUSH 5 ML FLUSH FLUSH SCH ×2 (07:54→21:03)
[2016-06-16] MEDS ORDERED: HYDR-3583 PO (09:08)
--- NOTE | 2016-06-16 09:09 | HHI.DCPOC ---
Discharge Care Plan Diagnosis: (1) Right knee injury (2) Traumatic rhabdomyolysis (3) Rhabdomyolysis Your Health Problems Are: Difficulty with ADL Exercise Tolerance Goals to Promote Your Health * To prevent worsening of your condition and complications * To maintain your health at the optimal level Directions to Meet Your Goals Take your medications as prescribed Follow your dietary instruction Follow activity as directed Keep your appointments as scheduled Take your immunizations and boosters as scheduled If your symptoms worsen call your PCP, if no PCP go to Urgent Care Center or Emergency Room Smoking is Dangerous to Your Health. Avoid second hand smoke Call the 24-hour hour crisis hotline for domestic abuse at Lamberto Gonzalez MD Jun 16, 2016 09:09
[2016-06-16] MEDS: ENOXAPARIN SODIUM 40 MG/0.4 ML SYRINGE SQ SCH (11:35)
[2016-06-16] MEDS: RESP: ALBUTEROL 2.5 MG/IPRATROPIUM 0.5 MG NEB (PRN) NEB (13:03)
--- NOTE | 2016-06-16 14:45 | HHI.PR ---
Subjective Remarks Follow-up right femur fracture. No new complaints. Pain control with Lortab. Agrees with rehabilitation. Discussed with RN Objective Vitals Vital Signs Date Time Temp Pulse Resp B/P Pulse Ox O2 Delivery O2 Flow Rate FiO2 06/16/16 13:04 96 Nasal Cannula 2.00 06/16/16 12:00 98.2 77 16 116/65 92 06/16/16 08:00 98.0 76 16 120/68 95 06/16/16 05:06 97.7 76 18 141/62 93 06/16/16 02:04 99.1 72 20 118/58 90 06/16/16 02:00 19 06/15/16 20:57 98.2 78 18 95/75 98 06/15/16 20:39 94 Nasal Cannula 3.00 06/15/16 20:00 75 06/15/16 17:54 18 06/15/16 16:00 97.4 75 20 122/63 93 06/15/16 14:50 18 I/O 06/15/16 06/15/16 06/15/16 06/16/16 06/16/16 06/16/16 07:00 15:00 23:00 07:00 15:00 23:00 Intake Total 1330 ml 240 ml 809 ml Balance 1330 ml 240 ml 809 ml Intake Oral 480 ml 240 ml 480 ml IV Total 850 ml 329 ml # Voids 2 3 1 7 Result Diagram: 06/15/16 0826 06/15/16 0826 Imaging Last Impressions Lower Extremity CT 06/14/16 0000 Signed Impressions: Service Date/Time: Tuesday, June 14, 2016 22:25 - CONCLUSION: Comminuted acute or subacute appearing distal metadiaphyseal fracture of the right femur that involves the femoral component of the right knee arthroplasty. Please see above. Micheal Brooks MD Chest X-Ray 06/13/16 1834 Signed Impressions: Service Date/Time: June 18:38 - CONCLUSION: 1. Minimal basilar and dependent atelectasis. No pneumothorax or effusion. Rajat Mccormick MD Knee X-Ray 06/13/16 0000 Signed Impressions: Service Date/Time: June 18:44 - CONCLUSION: 1. Previous knee replacement with cerclage wire fixation of the distal femur. Fracture line remains visible in the distal femoral shaft although of uncertain age. There is a large joint effusion with soft tissue swelling anteriorly. Rajat Mccormick MD Objective Remarks GENERAL: Morbidly obese elderly female in no acute distress. HEENT: PERRLA, EOMI. No scleral icterus or conjunctival pallor. No lid lag or facial droop. CARDIOVASCULAR: Regular rate and rhythm. No obvious murmurs to auscultation. No chest tenderness to palpation. RESPIRATORY: No obvious rhonchi or wheezing. Clear to auscultation. Breath sounds equal bilaterally. GASTROINTESTINAL: Abdomen soft, non-tender, nondistended. BS normal. MUSCULOSKELETAL: Decreased ROM of right knee due to pain, +bruising to right knee, Pulses intact. NEUROLOGICAL: Awake, alert and oriented x4. No focal neurologic deficits. Moving both upper and lower extremities spontaneously. Procedures none A/P Problem List: (1) Fall ICD Code: W19.XXXA Status: Acute (2) Rhabdomyolysis ICD Code: M62.82 Status: Acute (3) Physical deconditioning ICD Code: R53.81 Status: Acute (4) Knee pain ICD Code: M25.569 Status: Acute (5) Chronic anticoagulation ICD Code: Z79.01 Status: Chronic (6) Renal insufficiency ICD Code: N28.9 Status: Chronic (7) COPD (chronic obstructive pulmonary disease) ICD Code: J44.9 Status: Chronic (8) DM (diabetes mellitus) ICD Code: E11.9 Status: Chronic (9) Imchelle-prosthetic supracondylar fracture of femur ICD Code: M97.8XXA Status: Acute Assessment and Plan 1. Fall: S/p fall while attempting to transfer from bed to wheelchair, no LOC or head trauma. 2. Physical Deconditioning: Compounded by Morbid Obesity, will cont PT 3. Right Knee Pain: secondary to fall. Knee X-ray w/ previous knee replacement, fracture line remains visible in distal femoral shaft of uncertain age, large joint effusion with soft tissue swelling anteriorly, images reviewed by me. Analgesics as needed. PT for eval/tx as above. CT with Comminuted acute or subacute appearing distal metadiaphyseal fracture of the right femur that involves the femoral component of the right knee arthroplasty. Orthopedic surgery recommends nonoperative treatment. Knee in immobilizer . Pain mgt with lortab and IV MSO4 4. Rhabdomyolysis: CPK 2762, secondary to prolonged down time. U/a unremarkable. IVF, repeat CPK down trending. 5. Chronic Anticoagulation: On Coumadin, unclear for what reason, presumably for h/o CVA denies hx fib and DVT. INR 1.0. Will hold for now Pt states she is off coumadin for skin sx 06/25 dw RN. 6. Chronic kidney disease stage II: Creatinine 1.03, previously 1.08 on . Improving 7. COPD: Chronic Respiratory Failure. Stable. Resume home Advair. 8. DM: Sliding scale w/ Accu-Checks. Continue insulin pump. Stable 9. DVT Prophylaxis: SCD. Refusing Lovenox Discharge Planning Stable for discharge Problem Qualifiers (1) Fall: Qualified Code: W19.XXXD - Fall, subsequent encounter Lamberto Gonzalez MD Jun 16, 2016 14:45
[2016-06-16] MEDS ORDERED: ROPI.25 PO (15:55)
--- NOTE | 2016-06-16 15:57 | HHI.DS ---
Discharge Summary Admission Date Jun 13, 2016 at 21:04 Discharge Date: Jun 16, 2016 Admitting Diagnosis rhabdomyolysis, fall, right knee contusion (1) Fall ICD Code: W19.XXXA Diagnosis: Principal (2) Rhabdomyolysis ICD Code: M62.82 Diagnosis: Principal (3) Physical deconditioning ICD Code: R53.81 Diagnosis: Principal (4) Knee pain ICD Code: M25.569 Diagnosis: Principal (5) Chronic anticoagulation ICD Code: Z79.01 Diagnosis: Secondary (6) Renal insufficiency ICD Code: N28.9 Diagnosis: Secondary (7) COPD (chronic obstructive pulmonary disease) ICD Code: J44.9 Diagnosis: Secondary (8) DM (diabetes mellitus) ICD Code: E11.9 Diagnosis: Secondary (9) Michelle-prosthetic supracondylar fracture of femur ICD Code: M97.8XXA Diagnosis: Principal Procedures none Brief History - From Admission This is a 80-year-old female with a PMH of HTN, CAD, h/o CVA, Chronic Anticoagulation w/ Coumadin, Restless Leg Syndrome, COPD, Hypothyroidism and Morbid Obesity who was brought to the ER by EMS for c/o right knee pain following fall yesterday. Pt had apparently fallen at home and had gotten wedged between her bed and her wheelchair while she was trying to transfer. States she was down for approx 3hrs before she was found. Denies LOC or head trauma. Seen at [facility] and was discharged home, however having persistent knee pain and unable to care for self as pt lives at home alone. On arrival, BP 146/76, HR 88, O2 sat 98% on 2L NC, Afebrile. CBC unremarkable. Creatinine 1.03, previously 1.08 on 11/23/15. CPK 2762. CXR with minimal basilar and dependent atelectasis. Knee X-ray with previous knee replacement and fracture line remaining visible with large joint effusion and soft tissue swelling anteriorly. CBC/BMP: 06/15/16 0826 06/15/16 0826 Significant Findings Laboratory Tests Test 06/13/16 06/14/16 06/14/16 06/14/16 19:15 00:10 02:54 08:36 Monocytes (%) (Auto) 12.9 % 12.3 % (0.0-8.0) (0.0-8.0) Monocytes # (Auto) 1.0 TH/MM3 1.0 TH/MM3 (0-0.9) (0-0.9) Carbon Dioxide Level 33.9 MEQ/L (21.0-32.0) Creatinine 1.03 MG/DL (0.50-1.00) Estimat Glomerular Filtration 52 ML/MIN (>89) 60 ML/MIN (>89) Rate Random Glucose 113 MG/DL (74-106) Calcium Level 7.9 MG/DL 8.1 MG/DL (8.5-10.1) (8.5-10.1) Total Creatine Kinase 2762 U/L 2262 U/L 2096 U/L (26-192) (26-192) (26-192) Creatine Kinase MB 7.6 NG/ML 4.6 NG/ML 4.6 NG/ML (0.5-3.6) (0.5-3.6) (0.5-3.6) Urine Ketones TRACE mg/dL (NEG) Urine Mucus FEW /lpf (OCC) Prothrombin Time 11.7 SEC (9.8-11.6) Aspartate Amino Transf 72 U/L (15-37) (AST/SGOT) Total Protein 5.7 GM/DL (6.4-8.2) Albumin 2.8 GM/DL (3.4-5.0) Test 06/15/16 08:26 Monocytes (%) (Auto) 12.8 % (0.0-8.0) Eosinophils (%) (Auto) 6.1 % (0.0-4.0) Carbon Dioxide Level 35.3 MEQ/L (21.0-32.0) Anion Gap 4 MEQ/L (5-15) Estimat Glomerular Filtration 67 ML/MIN (>89) Rate Calcium Level 8.0 MG/DL (8.5-10.1) Total Creatine Kinase 1201 U/L (26-192) Imaging Last Impressions Lower Extremity CT 06/14/16 0000 Signed Impressions: Service Date/Time: Tuesday, June 14, 2016 22:25 - CONCLUSION: Comminuted acute or subacute appearing distal metadiaphyseal fracture of the right femur that involves the femoral component of the right knee arthroplasty. Please see above. Micheal Brooks MD Chest X-Ray 06/13/16 1834 Signed Impressions: Service Date/Time: June 18:38 - CONCLUSION: 1. Minimal basilar and dependent atelectasis. No pneumothorax or effusion. Rajat Mccormick MD Knee X-Ray 06/13/16 0000 Signed Impressions: Service Date/Time: June 18:44 - CONCLUSION: 1. Previous knee replacement with cerclage wire fixation of the distal femur. Fracture line remains visible in the distal femoral shaft although of uncertain age. There is a large joint effusion with soft tissue swelling anteriorly. Rajat Mccormick MD PE at Discharge GENERAL: Morbidly obese elderly female in no acute distress. HEENT: PERRLA, EOMI. No scleral icterus or conjunctival pallor. No lid lag or facial droop. CARDIOVASCULAR: Regular rate and rhythm. No obvious murmurs to auscultation. No chest tenderness to palpation. RESPIRATORY: No obvious rhonchi or wheezing. Clear to auscultation. Breath sounds equal bilaterally. GASTROINTESTINAL: Abdomen soft, non-tender, nondistended. BS normal. MUSCULOSKELETAL: Decreased ROM of right knee due to pain, +bruising to right knee, Pulses intact. NEUROLOGICAL: Awake, alert and oriented x4. No focal neurologic deficits. Moving both upper and lower extremities spontaneously. Hospital Course 1. Fall: S/p fall while attempting to transfer from bed to wheelchair, no LOC or head trauma. 2. Physical Deconditioning: Compounded by Morbid Obesity, will cont PT 3. Right Knee Pain: secondary to fall. Knee X-ray w/ previous knee replacement, fracture line remains visible in distal femoral shaft of uncertain age, large joint effusion with soft tissue swelling anteriorly, images reviewed by me. Analgesics as needed. PT for eval/tx as above. CT with Comminuted acute or subacute appearing distal metadiaphyseal fracture of the right femur that involves the femoral component of the right knee arthroplasty. Orthopedic surgery recommends nonoperative treatment. Knee in immobilizer . Pain mgt with lortab and IV MSO4 4. Rhabdomyolysis: CPK 2762, secondary to prolonged down time. U/a unremarkable. IVF, repeat CPK down trending. 5. Chronic Anticoagulation: On Coumadin, unclear for what reason, presumably for h/o CVA denies hx fib and DVT. INR 1.0. Will hold for now Pt states she is off coumadin for skin sx 06/25 dw RN. 6. Chronic kidney disease stage II: Creatinine 1.03, previously 1.08 on . Improving 7. COPD: Chronic Respiratory Failure. Stable. Resume home Advair. 8. DM: Sliding scale w/ Accu-Checks. Continue insulin pump. Stable 9. DVT Prophylaxis: SCD. Refusing Lovenox Pt Condition on Discharge: Stable Discharge Disposition: Discharge to SNF Discharge Time: > 30 minutes Discharge Instructions DIET: Follow Instructions for: Heart Healthy Diet Activities you can perform: Regular-No Restrictions Activities to Avoid: Driving Other Activity Instructions: RLE WB status per ortho Follow up Referrals: Orthopedics - 1 Week PCP Follow-up - 2-3 Days New Medications: Hydrocodone-Acetaminophen (Hydrocodone-Acetaminophen) 10-325 mg Tab 1 TAB PO Q6HR PRN pain #12 TAB Ropinirole (Requip) 0.25 Mg Tab 0.25 MG PO BID@09,16 tremors #60 TAB Continued Medications: Fluticasone-Salmeterol Inh (Advair Diskus Inh) 250-50 Mcg/Blist Aer 1 PUFF INH BID Rinse mouth after use. #1 Ref 0 INHALER Gabapentin (Gabapentin) 600 Mg Tab 600 MG PO BID #60 Ref 0 TAB Levothyroxine (Synthroid) 100 Mcg Tab 100 MCG PO DAILY Thyroid #30 Ref 0 TAB Ropinirole (Requip) 0.5 Mg Tab 0.5 MG PO HS #30 Ref 0 TAB Lamberto Gonzalez MD Jun 16, 2016 15:57
[2016-06-16] MEDS: ACETAMINOPHEN/HYDROcodone 325 MG/10 MG TAB PO PRN ×2 (16:23→21:02)
[2016-06-17 00:04] VITALS: BP 123/86; PULSE 85; RESP 16; TEMP 97.2; O2SAT 97
[2016-06-17] MEDS: ACETAMINOPHEN/HYDROcodone 325 MG/10 MG TAB PO PRN ×5 (01:18→22:05)
[2016-06-17] MEDS: LEVOTHYROXINE SODIUM 100 MCG TAB PO SCH (05:23)
[2016-06-17] MEDS: INSULIN ASPART SUPPLEMENTAL SCALE SQ SCH ×4 (06:42→20:26)
[2016-06-17 08:00] VITALS: BP 128/89; PULSE 100; RESP 20; TEMP 98.1; O2SAT 92
[2016-06-17] MEDS: GABAPENTIN 300 MG CAP PO SCH ×2 (09:39→20:26)
[2016-06-17] MEDS: SODIUM CHLORIDE 0.9% FLUSH 5 ML FLUSH FLUSH SCH ×2 (09:39→20:26)
--- NOTE | 2016-06-17 10:17 | HHI.PR ---
Subjective Remarks Follow-up right knee pain/mechanical fall 06/17/16-patient seen and examined, no acute event overnight. Case discussed with case management regarding discharge disposition Objective Vitals Vital Signs Date Time Temp Pulse Resp B/P Pulse Ox O2 Delivery O2 Flow Rate FiO2 06/17/16 08:00 98.1 100 20 128/89 92 06/17/16 06:24 16 06/17/16 00:04 97.2 85 16 123/86 97 06/16/16 20:17 99.1 94 16 151/86 92 06/16/16 16:00 98.0 100 16 147/79 92 06/16/16 13:04 96 Nasal Cannula 2.00 06/16/16 12:00 98.2 77 16 116/65 92 I/O 06/16/16 06/16/16 06/16/16 06/17/16 06/17/16 06/17/16 07:00 15:00 23:00 07:00 15:00 23:00 Intake Total 240 ml 809 ml 120 ml Balance 240 ml 809 ml 120 ml Intake Oral 240 ml 480 ml 120 ml IV Total 329 ml # Voids 1 7 3 15 Result Diagram: 06/15/16 0826 06/15/16 0826 Imaging Last Impressions Lower Extremity CT 06/14/16 0000 Signed Impressions: Service Date/Time: Tuesday, June 14, 2016 22:25 - CONCLUSION: Comminuted acute or subacute appearing distal metadiaphyseal fracture of the right femur that involves the femoral component of the right knee arthroplasty. Please see above. Micheal Brooks MD Chest X-Ray 06/13/16 1834 Signed Impressions: Service Date/Time: June 18:38 - CONCLUSION: 1. Minimal basilar and dependent atelectasis. No pneumothorax or effusion. Rajat Mccormick MD Knee X-Ray 06/13/16 0000 Signed Impressions: Service Date/Time: June 18:44 - CONCLUSION: 1. Previous knee replacement with cerclage wire fixation of the distal femur. Fracture line remains visible in the distal femoral shaft although of uncertain age. There is a large joint effusion with soft tissue swelling anteriorly. Rajat Mccormick MD Procedures GENERAL: NAD and obese SKIN: Warm and dry. HEAD: Normocephalic. EYES: No scleral icterus. No injection or drainage. NECK: Supple, trachea midline. No JVD or lymphadenopathy. CARDIOVASCULAR: Regular rate and rhythm without murmurs, gallops, or rubs. RESPIRATORY: Breath sounds equal bilaterally. No accessory muscle use. GASTROINTESTINAL: obese,Abdomen soft, non-tender, nondistended. MUSCULOSKELETAL: No cyanosis, or edema. Right LLE limited ROM BACK: Nontender without obvious deformity. No CVA tenderness. none A/P Problem List: (1) Fall ICD Code: W19.XXXA Status: Acute (2) Rhabdomyolysis ICD Code: M62.82 Status: Acute (3) Physical deconditioning ICD Code: R53.81 Status: Acute (4) Knee pain ICD Code: M25.569 Status: Acute (5) Chronic anticoagulation ICD Code: Z79.01 Status: Chronic (6) Renal insufficiency ICD Code: N28.9 Status: Chronic (7) COPD (chronic obstructive pulmonary disease) ICD Code: J44.9 Status: Chronic (8) DM (diabetes mellitus) ICD Code: E11.9 Status: Chronic (9) Michelle-prosthetic supracondylar fracture of femur ICD Code: M97.8XXA Status: Acute Assessment and Plan 80-year-old female with 1. Fall: Fall precautions 2. Physical Deconditioning: Compounded by Morbid Obesity, PT to treat 3. Right Knee Pain: secondary to fall. Knee X-ray w/ previous knee replacement, fracture line remains visible in distal femoral shaft of uncertain age, large joint effusion with soft tissue swelling anteriorly. Analgesics as needed. PT for eval/tx as above. CT with Comminuted acute or subacute appearing distal metadiaphyseal fracture of the right femur that involves the femoral component of the right knee arthroplasty. Orthopedic surgery recommends nonoperative treatment. Knee in immobilizer . Pain mgt with lortab and IV MSO4 4. Rhabdomyolysis: CPK 2762, secondary to prolonged down time. U/a unremarkable. IVF, repeat CPK down trending. 5. Chronic Anticoagulation: On Coumadin, unclear for what reason, presumably for h/o CVA denies hx fib and DVT. INR 1.0. Will hold for now Pt states she is off coumadin for skin sx 06/25 6. Chronic kidney disease stage II: Creatinine 1.03, previously 1.08 on . Improving 7. COPD: Chronic Respiratory Failure. Stable. on home Advair. 8. DM: Sliding scale w/ Accu-Checks. Continue insulin pump. Stable 9. DVT Prophylaxis: SCD. Refusing Lovenox Problem Qualifiers (1) Fall: Qualified Code: W19.XXXD - Fall, subsequent encounter Jarrod Rivero MD Jun 17, 2016 10:17
--- NOTE | 2016-06-17 10:19 | HHI.DS ---
Discharge Summary Admission Date Jun 13, 2016 at 21:04 Discharge Date: Jun 17, 2016 Admitting Diagnosis rhabdomyolysis, fall, right knee contusion (1) Fall ICD Code: W19.XXXA Diagnosis: Principal (2) Rhabdomyolysis ICD Code: M62.82 Diagnosis: Principal (3) Physical deconditioning ICD Code: R53.81 Diagnosis: Principal (4) Knee pain ICD Code: M25.569 Diagnosis: Principal (5) Chronic anticoagulation ICD Code: Z79.01 Diagnosis: Secondary (6) Renal insufficiency ICD Code: N28.9 Diagnosis: Secondary (7) COPD (chronic obstructive pulmonary disease) ICD Code: J44.9 Diagnosis: Secondary (8) DM (diabetes mellitus) ICD Code: E11.9 Diagnosis: Secondary (9) Michelle-prosthetic supracondylar fracture of femur ICD Code: M97.8XXA Diagnosis: Principal Procedures GENERAL: NAD and obese SKIN: Warm and dry. HEAD: Normocephalic. EYES: No scleral icterus. No injection or drainage. NECK: Supple, trachea midline. No JVD or lymphadenopathy. CARDIOVASCULAR: Regular rate and rhythm without murmurs, gallops, or rubs. RESPIRATORY: Breath sounds equal bilaterally. No accessory muscle use. GASTROINTESTINAL: obese,Abdomen soft, non-tender, nondistended. MUSCULOSKELETAL: No cyanosis, or edema. Right LLE limited ROM BACK: Nontender without obvious deformity. No CVA tenderness. none Brief History - From Admission This is a 80-year-old female with a PMH of HTN, CAD, h/o CVA, Chronic Anticoagulation w/ Coumadin, Restless Leg Syndrome, COPD, Hypothyroidism and Morbid Obesity who was brought to the ER by EMS for c/o right knee pain following fall yesterday. Pt had apparently fallen at home and had gotten wedged between her bed and her wheelchair while she was trying to transfer. States she was down for approx 3hrs before she was found. Denies LOC or head trauma. Seen at [facility] and was discharged home, however having persistent knee pain and unable to care for self as pt lives at home alone. On arrival, BP 146/76, HR 88, O2 sat 98% on 2L NC, Afebrile. CBC unremarkable. Creatinine 1.03, previously 1.08 on 11/23/15. CPK 2762. CXR with minimal basilar and dependent atelectasis. Knee X-ray with previous knee replacement and fracture line remaining visible with large joint effusion and soft tissue swelling anteriorly. CBC/BMP: 06/15/16 0826 06/15/16 0826 Significant Findings Laboratory Tests Test 06/15/16 08:26 Monocytes (%) (Auto) 12.8 % (0.0-8.0) Eosinophils (%) (Auto) 6.1 % (0.0-4.0) Carbon Dioxide Level 35.3 MEQ/L (21.0-32.0) Anion Gap 4 MEQ/L (5-15) Estimat Glomerular Filtration 67 ML/MIN (>89) Rate Calcium Level 8.0 MG/DL (8.5-10.1) Total Creatine Kinase 1201 U/L (26-192) PE at Discharge GENERAL: Morbidly obese elderly female in no acute distress. HEENT: PERRLA, EOMI. No scleral icterus or conjunctival pallor. No lid lag or facial droop. CARDIOVASCULAR: Regular rate and rhythm. No obvious murmurs to auscultation. No chest tenderness to palpation. RESPIRATORY: No obvious rhonchi or wheezing. Clear to auscultation. Breath sounds equal bilaterally. GASTROINTESTINAL: Abdomen soft, non-tender, nondistended. BS normal. MUSCULOSKELETAL: Decreased ROM of right knee due to pain, +bruising to right knee, Pulses intact. NEUROLOGICAL: Awake, alert and oriented x4. No focal neurologic deficits. Moving both upper and lower extremities spontaneously. Hospital Course 1. Fall: Fall precautions 2. Physical Deconditioning: Compounded by Morbid Obesity, PT to treat 3. Right Knee Pain: secondary to fall. Knee X-ray w/ previous knee replacement, fracture line remains visible in distal femoral shaft of uncertain age, large joint effusion with soft tissue swelling anteriorly. Analgesics as needed. PT for eval/tx as above. CT with Comminuted acute or subacute appearing distal metadiaphyseal fracture of the right femur that involves the femoral component of the right knee arthroplasty. Orthopedic surgery recommends nonoperative treatment. Knee in immobilizer . Pain mgt with lortab and IV MSO4 4. Rhabdomyolysis: CK improved with aggressive IV fluid hydration 5. Chronic Anticoagulation: On Coumadin, unclear for what reason, presumably for h/o CVA denies hx fib and DVT. INR 1.0. Will hold for now Pt states she is off coumadin for skin sx 06/25 6. Chronic kidney disease stage II: Creatinine 1.03, previously 1.08 on . Improved 7. COPD: Chronic Respiratory Failure. Stable. on home Advair. 8. DM: Sliding scale w/ Accu-Checks. Continue insulin pump. Stable 9. DVT Prophylaxis: SCD. Refusing Lovenox Pt Condition on Discharge: Stable Discharge Disposition: Discharge to SNF Discharge Time: > 30 minutes Discharge Instructions DIET: Follow Instructions for: Heart Healthy Diet Activities you can perform: Regular-No Restrictions Activities to Avoid: Driving Other Activity Instructions: RLE WB status per ortho Follow up Referrals: Orthopedics - 1 Week PCP Follow-up - 2-3 Days New Medications: Hydrocodone-Acetaminophen (Hydrocodone-Acetaminophen) 10-325 mg Tab 1 TAB PO Q6HR PRN pain #12 TAB Ropinirole (Requip) 0.25 Mg Tab 0.25 MG PO BID@09,16 tremors #60 TAB Continued Medications: Fluticasone-Salmeterol Inh (Advair Diskus Inh) 250-50 Mcg/Blist Aer 1 PUFF INH BID Rinse mouth after use. #1 Ref 0 INHALER Gabapentin (Gabapentin) 600 Mg Tab 600 MG PO BID #60 Ref 0 TAB Levothyroxine (Synthroid) 100 Mcg Tab 100 MCG PO DAILY Thyroid #30 Ref 0 TAB Ropinirole (Requip) 0.5 Mg Tab 0.5 MG PO HS #30 Ref 0 TAB Jarrod Rivero MD Jun 17, 2016 10:19
[2016-06-17] MEDS: ENOXAPARIN SODIUM 40 MG/0.4 ML SYRINGE SQ SCH (11:23)
[2016-06-17] MEDS: MORPHINE SULFATE 4 MG/ML INJ IV PRN (12:13)
[2016-06-17 16:00] VITALS: BP 120/86; PULSE 91; RESP 15; TEMP 97.6; O2SAT 96
[2016-06-17 20:00] VITALS: BP 124/58; PULSE 98; RESP 18; TEMP 99.2; O2SAT 92
[2016-06-18] VITALS: BP 139/85; PULSE 98; RESP 17; TEMP 98.6; O2SAT 92
[2016-06-18 04:00] VITALS: BP 112/70; PULSE 94; RESP 18; TEMP 97; O2SAT 93
[2016-06-18] MEDS: LEVOTHYROXINE SODIUM 100 MCG TAB PO SCH (05:32)
[2016-06-18] MEDS: ACETAMINOPHEN/HYDROcodone 325 MG/10 MG TAB PO PRN ×5 (05:36→23:53)
[2016-06-18] MEDS: INSULIN ASPART SUPPLEMENTAL SCALE SQ SCH ×4 (05:40→21:00)
[2016-06-18 09:00] VITALS: BP 111/72; PULSE 95; RESP 18; O2SAT 92
[2016-06-18] MEDS: SODIUM CHLORIDE 0.9% FLUSH 5 ML FLUSH FLUSH SCH ×2 (09:31→21:10)
[2016-06-18] MEDS: GABAPENTIN 300 MG CAP PO SCH ×2 (09:31→21:10)
--- NOTE | 2016-06-18 11:06 | HHI.PR ---
Subjective Remarks Follow-up right knee pain/mechanical fall 06/17/16-patient seen and examined, no acute event overnight. Case discussed with case management regarding discharge disposition 06/18/16-patient seen and examined; complains of more spasm to BLE d/t RLS and requesting her med to be given Q8H Objective Vitals Vital Signs Date Time Temp Pulse Resp B/P Pulse Ox O2 Delivery O2 Flow Rate FiO2 06/18/16 09:00 95 18 111/72 92 06/18/16 04:00 97.0 94 18 112/70 93 06/18/16 00:00 98.6 98 17 139/85 92 06/17/16 20:00 99.2 98 18 124/58 92 06/17/16 16:00 97.6 91 15 120/86 96 I/O 06/17/16 06/17/16 06/17/16 06/18/16 06/18/16 06/18/16 07:00 15:00 23:00 07:00 15:00 23:00 Intake Total 120 ml 480 ml 200 ml Output Total 600 ml Balance 120 ml 480 ml 200 ml -600 ml Intake Oral 120 ml 480 ml 200 ml Output Urine Total 600 ml # Voids 15 4 3 4 # Bowel Movements 2 Result Diagram: 06/15/1682506/15/16825 Procedures GENERAL: NAD and obese SKIN: Warm and dry. HEAD: Normocephalic. EYES: No scleral icterus. No injection or drainage. NECK: Supple, trachea midline. No JVD or lymphadenopathy. CARDIOVASCULAR: Regular rate and rhythm without murmurs, gallops, or rubs. RESPIRATORY: Breath sounds equal bilaterally. No accessory muscle use. GASTROINTESTINAL: obese,Abdomen soft, non-tender, nondistended. MUSCULOSKELETAL: No cyanosis, or edema. Right LLE limited ROM BACK: Nontender without obvious deformity. No CVA tenderness. none A/P Problem List: (1) Fall ICD Code: W19.XXXA Status: Acute (2) Rhabdomyolysis ICD Code: M62.82 Status: Acute (3) Physical deconditioning ICD Code: R53.81 Status: Acute (4) Knee pain ICD Code: M25.569 Status: Acute (5) Chronic anticoagulation ICD Code: Z79.01 Status: Chronic (6) Renal insufficiency ICD Code: N28.9 Status: Chronic (7) COPD (chronic obstructive pulmonary disease) ICD Code: J44.9 Status: Chronic (8) DM (diabetes mellitus) ICD Code: E11.9 Status: Chronic (9) Michelle-prosthetic supracondylar fracture of femur ICD Code: M97.8XXA Status: Acute Assessment and Plan 80-year-old female with 1. Fall: Fall precautions 2. Physical Deconditioning: Compounded by Morbid Obesity, PT to treat 3. Right Knee Pain: secondary to fall. Knee X-ray w/ previous knee replacement, fracture line remains visible in distal femoral shaft of uncertain age, large joint effusion with soft tissue swelling anteriorly. Analgesics as needed. PT for eval/tx as above. CT with Comminuted acute or subacute appearing distal metadiaphyseal fracture of the right femur that involves the femoral component of the right knee arthroplasty. Orthopedic surgery recommends nonoperative treatment. Knee in immobilizer . Pain mgt with lortab and IV MSO4 4. Rhabdomyolysis: CPK 2762, secondary to prolonged down time. IVF, repeat CPK down trending. 5. Chronic Anticoagulation: On Coumadin, unclear for what reason, presumably for h/o CVA denies hx fib and DVT. INR 1.0. Will hold for now Pt states she is off coumadin for skin sx 06/25 6. Chronic kidney disease stage II: Improving 7. COPD: Chronic Respiratory Failure. Stable. on home Advair. 8. DM: Sliding scale w/ Accu-Checks. Continue insulin pump. Stable 9. DVT Prophylaxis: SCD. Refusing Lovenox 10. RLS: Requip 0.5mg HS and 0.25mg BID Problem Qualifiers (1) Fall: Qualified Code: W19.XXXD - Fall, subsequent encounter Jarrod Rivero MD Jun 18, 2016 11:06
[2016-06-18 12:00] VITALS: BP 116/66; PULSE 95; RESP 18; TEMP 98.4; O2SAT 92
[2016-06-18] MEDS: ENOXAPARIN SODIUM 40 MG/0.4 ML SYRINGE SQ SCH (12:00)
[2016-06-18 17:00] VITALS: BP 140/87; PULSE 81; RESP 18; TEMP 96.8; O2SAT 98
[2016-06-18 20:00] VITALS: BP 142/85; PULSE 79; RESP 18; TEMP 97.6; O2SAT 92
[2016-06-18] MEDS: MORPHINE SULFATE 4 MG/ML INJ IV PRN (22:22)
[2016-06-19] VITALS: BP 118/74; PULSE 86; RESP 17; TEMP 99.4; O2SAT 92
[2016-06-19 04:00] VITALS: BP 112/73; PULSE 90; RESP 18; TEMP 98.1; O2SAT 97
[2016-06-19] MEDS: ACETAMINOPHEN/HYDROcodone 325 MG/10 MG TAB PO PRN ×2 (05:22→14:10)
[2016-06-19] MEDS: LEVOTHYROXINE SODIUM 100 MCG TAB PO SCH (05:22)
[2016-06-19] MEDS: INSULIN ASPART SUPPLEMENTAL SCALE SQ SCH ×2 (06:20→11:58)
[2016-06-19 07:33] VITALS: BP 141/67; PULSE 72; RESP 20; TEMP 96.4; O2SAT 93
[2016-06-19] MEDS: GABAPENTIN 300 MG CAP PO SCH (08:30)
[2016-06-19] MEDS: SODIUM CHLORIDE 0.9% FLUSH 5 ML FLUSH FLUSH SCH (08:32)
--- NOTE | 2016-06-19 09:26 | HHI.PR ---
Subjective Remarks Follow-up right knee pain/mechanical fall 06/17/16-patient seen and examined, no acute event overnight. Case discussed with case management regarding discharge disposition 06/18/16-patient seen and examined; complains of more spasm to BLE d/t RLS and requesting her med to be given Q8H 06/19/16-patient seen and examined, state complains of lower extremities spasm. Afebrile and no other issues. Objective Vitals Vital Signs Date Time Temp Pulse Resp B/P Pulse Ox O2 Delivery O2 Flow Rate FiO2 06/19/16 07:33 96.4 72 20 141/67 93 06/19/16 04:00 98.1 90 18 112/73 97 06/19/16 00:00 99.4 86 17 118/74 92 06/18/16 20:00 97.6 79 18 142/85 92 06/18/16 17:00 96.8 81 18 140/87 98 06/18/16 12:00 98.4 95 18 116/66 92 I/O 06/18/16 06/18/16 06/18/16 06/19/16 06/19/16 06/19/16 07:00 15:00 23:00 07:00 15:00 23:00 Intake Total 200 ml 720 ml 200 ml Output Total 1800 ml 300 ml Balance 200 ml -1080 ml -300 ml 200 ml Intake Oral 200 ml 720 ml 200 ml Output Urine Total 1800 ml 300 ml # Voids 4 5 Result Diagram: 06/15/1682506/15/16 08 Procedures GENERAL: NAD and obese SKIN: Warm and dry. HEAD: Normocephalic. EYES: No scleral icterus. No injection or drainage. NECK: Supple, trachea midline. No JVD or lymphadenopathy. CARDIOVASCULAR: Regular rate and rhythm without murmurs, gallops, or rubs. RESPIRATORY: Breath sounds equal bilaterally. No accessory muscle use. GASTROINTESTINAL: obese,Abdomen soft, non-tender, nondistended. MUSCULOSKELETAL: No cyanosis, or edema. Right LLE limited ROM BACK: Nontender without obvious deformity. No CVA tenderness. none A/P Problem List: (1) Fall ICD Code: W19.XXXA Status: Acute (2) Rhabdomyolysis ICD Code: M62.82 Status: Acute (3) Physical deconditioning ICD Code: R53.81 Status: Acute (4) Knee pain ICD Code: M25.569 Status: Acute (5) Chronic anticoagulation ICD Code: Z79.01 Status: Chronic (6) Renal insufficiency ICD Code: N28.9 Status: Chronic (7) COPD (chronic obstructive pulmonary disease) ICD Code: J44.9 Status: Chronic (8) DM (diabetes mellitus) ICD Code: E11.9 Status: Chronic (9) Michelle-prosthetic supracondylar fracture of femur ICD Code: M97.8XXA Status: Acute Assessment and Plan 80-year-old female with 1. Fall: Fall precautions 2. Physical Deconditioning: Compounded by Morbid Obesity, PT to treat 3. Right Knee Pain: secondary to fall. Knee X-ray w/ previous knee replacement, fracture line remains visible in distal femoral shaft of uncertain age, large joint effusion with soft tissue swelling anteriorly. Analgesics as needed. PT for eval/tx as above. CT with Comminuted acute or subacute appearing distal metadiaphyseal fracture of the right femur that involves the femoral component of the right knee arthroplasty. Orthopedic surgery recommends nonoperative treatment. Knee in immobilizer . Pain mgt with lortab and IV MSO4 4. Rhabdomyolysis: CPK 2762, secondary to prolonged down time. IVF, repeat CPK down trending. 5. Chronic Anticoagulation: On Coumadin, unclear for what reason, presumably for h/o CVA denies hx fib and DVT. INR 1.0. continue to hold for now Pt states she is off coumadin for skin sx 06/25 6. Chronic kidney disease stage II: Improving 7. COPD: Chronic Respiratory Failure. Stable. on home Advair. 8. DM: Sliding scale w/ Accu-Checks. Continue insulin pump. Stable 9. DVT Prophylaxis: SCD. Refusing Lovenox 10. RLS: Change Requip 0.5mg to Q8H Problem Qualifiers (1) Fall: Qualified Code: W19.XXXD - Fall, subsequent encounter Jarrod Rivero MD Jun 19, 2016 09:26
[2016-06-19] MEDS: ACETAMINOPHEN/HYDROcodone 325 MG/7.5 MG TAB PO PRN (09:44)
[2016-06-19 11:59] VITALS: RESP 16
[2016-06-19] MEDS: ENOXAPARIN SODIUM 40 MG/0.4 ML SYRINGE SQ SCH (13:18)
== END 2016-06-19 15:05 | DRG 565 ==
LOC: NEPA 18:28 → NEDA 21:04 → NEPFCDU 06-14 01:37 → HOCB 06-16 01:38
PROVIDERS: ADMIT Hospitalist; ATTEND Hospitalist
DX: T79.6XXA Traumatic ischemia of muscle, initial encounter (principal); Z68.44 Body mass index [BMI] 60.0-69.9, adult; J96.10 Chronic respiratory failure, unspecified whether with hypoxia or hypercapnia; E11.22 Type 2 diabetes mellitus with diabetic chronic kidney disease; E66.01 Morbid (severe) obesity due to excess calories; J44.9 Chronic obstructive pulmonary disease, unspecified; S80.01XA Contusion of right knee, initial encounter; W06.XXXA Fall from bed, initial encounter; Y92.003 Bedroom of unspecified non-institutional (private) residence as the place of occurrence of the external cause; Z79.4 Long term (current) use of insulin; Z79.01 Long term (current) use of anticoagulants; I25.10 Atherosclerotic heart disease of native coronary artery without angina pectoris; E03.9 Hypothyroidism, unspecified; Z86.73 Personal history of transient ischemic attack (TIA), and cerebral infarction without residual deficits; G25.81 Restless legs syndrome; N18.2 Chronic kidney disease, stage 2 (mild); I12.9 Hypertensive chronic kidney disease with stage 1 through stage 4 chronic kidney disease, or unspecified chronic kidney disease; M97.11XD Periprosthetic fracture around internal prosthetic right knee joint, subsequent encounter; R26.9 Unspecified abnormalities of gait and mobility
CPT/HCPCS: 71010; 73560; 73700; 76937; 80048; 80053; 81001; 82550; 82552; 82948; 83735; 85025; 85610; 85730; 93005; 94150; 94640; 94664; 99284; J1650; J2270; J2405; J7030; L1830